=== PATIENT | male | born 1975 ===

== ENCOUNTER 2017-05-24 16:14 | Emergency (ER) | payer BC, OTHER ==
[2017-05-24 17:08] LABS: BASO % 0.4 % (0.0-2.0); EOS # 0.3 K/uL (0.0-0.7); EOS % 2.7 % (0.0-4.0); LYMPH # 2.8 K/uL (1.0-4.3); LYMPH % 25.4 % (20.0-40.0); MEAN CELL VOLUME 84.7 fl (80.0-94.0); MEAN CORPUSCULAR HEMOGLOBIN 27.5 pg (27.0-31.0); MEAN CORPUSCULAR HGB CONC 32.5 g/dL (33.0-37.0); MEAN PLATELET VOLUME 7.8 fl (7.2-11.7); MONO # 0.7 K/uL (0.0-0.8); MONO % 6.7 % (0.0-10.0); NEUT % 64.8 % (50.0-75.0); RBC 4.74 Mil/uL (4.40-5.90); RED CELL DISTRIBUTION WIDTH 14.7 % (11.5-14.5); WHITE BLOOD COUNT 10.9 K/uL (4.8-10.8)
[2017-05-24 17:14] LABS: URINE BACTERIA RARE (<OCC); URINE BILIRUBIN NEGATIVE (NEGATIVE); URINE BLOOD MODERATE (NEGATIVE); URINE CLARITY CLEAR (Clear); URINE COLOR STRAW (YELLOW); URINE GLUCOSE (UA) NEG (Normal); URINE LEUKOCYTE ESTERASE NEG Leu/uL (Negative); URINE NITRATE NEGATIVE (NEGATIVE); URINE PROTEIN NEGATIVE (NEGATIVE); URINE UROBILINOGEN 0.2-1.0 mg/dL (0.2-1.0)
--- NOTE | 2017-05-24 17:16 | ED PDOC ---
HPI: Chest Pain Time Seen by Provider: 05/24/17 16:27 Chief Complaint (Nursing): Chest Pain History Per: Patient, Acute Coordinator History/Exam Limitations: no limitations Onset/Duration Of Symptoms: Days (4), Gradual, Worse Since (today) Current Symptoms Are (Timing): Intermittent Episodes Severity: Mild Quality: Sharp Associated Symptoms: denies: Nausea, Dyspnea, Diaphoresis, Syncope Modifying Factors: None Exacerbating Factors: None Alleviating Factors: None Additional History Per: Patient Additional Complaint(s): Patient complaining of midsternal chest pain radiating to left side x 4 days. non exertional Past Medical History Reviewed: Historical Data, Nursing Documentation, Vital Signs Vital Signs: Last Vital Signs Temp 97.8 F 05/24/17 19:13 Pulse 54 L 05/24/17 19:42 Resp 16 05/24/17 19:42 BP 137/79 05/24/17 19:42 Pulse Ox 100 05/24/17 21:27 - Medical History PMH: No Chronic Diseases Denies: Chronic Kidney Disease - Family History Family History: States: Unknown Family Hx - Living Arrangements Living Arrangements: With Family - Home Medications Home Medications: Ambulatory Orders Medication Instructions Recorded Cyclobenzaprine [Flexeril] 10 mg PO TID PRN #0 tab 04/20/14 Ibuprofen [Motrin Tab] 800 mg PO Q8 #0 tab 04/20/14 Cyclobenzaprine [Cyclobenzaprine 10 mg PO TID PRN #15 tab 05/24/17 HCl] - Allergies Allergies/Adverse Reactions: Allergies Allergy/AdvReac Type Severity Reaction Status Date / Time No Known Allergies Allergy Verified 04/16/14 07:35 DAYDAY Risk Score for UA/NSTEMI - DAYDAY Risk Score Age > 64: NO 3 or more CAD Risk Factors: NO Known CAD (Stenosis greater than 50%): NO Aspirin use in past 7 days: NO Severe Angina: NO EKG ST changes greater than 0.5mm: NO Positive Cardiac Marker: NO DAYDAY Score: 0 Risk %: 5% Review of Systems ROS Statement: Except As Marked, All Systems Reviewed And Found Negative Constitutional: Negative for: Fever, Chills Cardiovascular: Positive for: Chest Pain. Negative for: Palpitations, Orthopnea Respiratory: Negative for: Cough, Shortness of Breath Gastrointestinal: Negative for: Nausea, Vomiting, Abdominal Pain Musculoskeletal: Negative for: Neck Pain Neurological: Negative for: Weakness, Numbness, Headache Physical Exam - Reviewed Nursing Documentation Reviewed: Yes Vital Signs Reviewed: Yes - Physical Exam Appears: Positive for: Uncomfortable Head Exam: Positive for: ATRAUMATIC, NORMAL INSPECTION, NORMOCEPHALIC Eye Exam: Positive for: Normal appearance, EOMI, PERRL Neck: Positive for: Normal, Painless ROM, Supple. Negative for: Decreased ROM Cardiovascular/Chest: Positive for: Regular Rate, Rhythm, Chest Non Tender. Negative for: Edema, Gallop, Murmur, Bradycardia, Tachycardia Respiratory: Positive for: Normal Breath Sounds. Negative for: Decreased Breath Sounds, Accessory Muscle Use, Crackles, Rales, Rhonchi, Stridor, Wheezing , Respiratory Distress, Plerual Rub Pulses-Radial (L): 2+ Pulses-Radial (R): 2+ Gastrointestinal/Abdominal: Positive for: Normal Exam, Bowel Sounds, Soft. Negative for: Tenderness Back: Positive for: Normal Inspection. Negative for: L CVA Tenderness, R CVA Tenderness Extremity: Positive for: Normal ROM. Negative for: Tenderness, Pedal Edema Neurologic/Psych: Positive for: Alert, camp dishwasher II-XII, Oriented. Negative for: Motor/Sensory Deficits - Laboratory Results Result Diagrams: 05/24/17 16:50 05/24/17 16:50 - ECG ECG: Positive for: Interpreted By Me ECG Rhythm: Positive for: Normal QRS, Normal ST Segment, Sinus Rhythm. Negative for: ST/T Changes Interpretation Of Abn EKG: rate of 70, no evidence of ischemia O2 Sat by Pulse Oximetry: 100 Pulse Ox Interpretation: Normal - Radiology X-Ray: Interpreted by Me X-Ray Interpretation: No Acute Disease - Progress ED Course And Treament: CT Scan ABD PELVIS W/O PO OR IV CONT Exam Date: 05/24/17 This imaging exam was performed at [facility] EXAM: CT Abdomen and Pelvis Without Intravenous Contrast EXAM DATE/TIME: 05/24/2017 6:03 PM CLINICAL HISTORY: 41 years old, male; Pain; Abdominal pain; Additional info: Left flank pain R/O renal stone TECHNIQUE: Axial computed tomography images of the abdomen and pelvis without intravenous contrast. All CT scans at this facility use one or more dose reduction techniques, viz.: automated exposure control; ma/kV adjustment per patient size (including targeted exams where dose is matched to indication; i.e. head); or iterative reconstruction technique. Coronal and sagittal reformatted images were created and reviewed. COMPARISON: No relevant prior studies available. FINDINGS: LIMITATIONS: Mild streak/motion artifact. LOWER THORAX: Small hiatal hernia. ABDOMEN: LIVER: Scattered, tiny low density liver lesions, most likely representing cysts, although several of these lesions are too small to characterize definitively. The largest lesion measures 9 mm. GALLBLADDER AND BILE DUCTS: No CT evidence of acute cholecystitis. No evidence of significant biliary ductal dilatation. PANCREAS: No CT evidence of acute pancreatitis. SPLEEN: No acute abnormality of the spleen identified. ADRENALS: No acute abnormality of the adrenal glands identified. KIDNEYS AND URETERS: Bilateral perinephric stranding, a nonspecific finding. No renal stones, hydronephrosis, or hydroureter seen. STOMACH AND BOWEL: No acute abnormality of the stomach, small bowel or colon identified, allowing for motion artifact. No evidence of bowel obstruction. No evidence of diverticulitis. APPENDIX: Appendix is seen, and is within normal limits in appearance. PELVIS: BLADDER: No acute abnormality of the bladder identified. REPRODUCTIVE: No acute abnormality of the reproductive organs is seen. ABDOMEN and PELVIS: INTRAPERITONEAL SPACE: No evidence of free intraperitoneal air or fluid. BONES/JOINTS: Findings suspicious for bilateral sacroiliitis. There is mild sclerosis abutting the sacroiliac joints bilaterally, associated with suspected mild erosive changes. This appears symmetric. An underlying spondyloarthropathy such as ankylosing spondylitis, could have this appearance. Recommend clinical correlation. Osteoarthritic changes involving the right hip. No acute bony abnormality identified. SOFT TISSUES: Fat-containing inguinal hernia on the left. VASCULATURE: No evidence of abdominal aortic aneurysm. No evidence of periaortic hemorrhage. LYMPH NODES: No evidence of diffuse lymphadenopathy. IMPRESSION: - No evidence of significant acute process on this unenhanced exam. There is no evidence of nephrolithiasis or obstructive uropathy. - Findings suspicious for bilateral sacroiliitis. Please see above for a full description. - See above for remaining findings. Dictated By: Dian Martinez MD Dictated Date/Time: 05/24/171928 Signed By: Dian Martinez MD Date Signed: 1928 Transcribed By: LEONA Transcribe Date/Time : 05/24/171928 [facility] Re-evaluation Time: 19:35 Condition: Improved Medical Decision Making Medical Decision Makinpm sx have improved two undetectable trop r/o Mi in this pt that is low risk. advise close f/u with pmd and survey methodologist. advise close clinic f/u. advise no exertion until seen by cards or fp clinic all of pt's questions were answered and pt agree's with plan pt leaves ambulatory and in good spirits. Disposition - Clinical Impression Clinical Impression: Chest pain - Patient ED Disposition Is Patient to be Admitted: No Counseled Patient/Family Regarding: Studies Performed, Diagnosis, Need For Followup - Disposition Referrals: [facility] [Outside] Alejandro Lozano MD [Staff Provider] - Disposition: Routine/Home Disposition Time: 21:00 Condition: GOOD Prescriptions: Cyclobenzaprine [Cyclobenzaprine HCl] 10 mg PO TID PRN #15 tab PRN Reason: Pain, Mild (1-3) Instructions: Chest Pain, Sacroiliac Joint Pain (DC) Forms: [facility] (Serbian) Print Language: MONEGASQUE
[2017-05-24 17:19] LABS: ALB/GLOB RATIO 1.2 (1.0-2.1); ALBUMIN 4.2 g/dL (3.5-5.0); ALT/SGPT 42 U/L (21-72); AST/SGOT 27 U/L (17-59); BLOOD UREA NITROGEN 11 mg/dl (9-20); CALCIUM 9.3 mg/dL (8.4-10.2); GFR AFRICAN-AMERICAN > 60; GFR NON-AFRICAN AMERICAN > 60; LIPASE 103 U/L (23-300)
[2017-05-24 17:29] LABS: B-TYPE NATRIURETIC PEPTIDE 37.4 pg/ml (0-450)
[2017-05-24 17:51] LABS: INR 1.1 (0.9-1.2); PARTIAL THROMBOPLASTIN TIME 25.3 Seconds (25.6-37.1); PROTHROMBIN TIME 12.5 Seconds (9.8-13.1)
[2017-05-24] MEDS: Sodium Chloride 0.9% 1,000 ML IV ONE (18:26)
[2017-05-24 19:13] VITALS: TEMP 97.8
--- NOTE | 2017-05-24 19:30 | CT ---
EXAM: CT Abdomen and Pelvis Without Intravenous Contrast EXAM DATE/TIME: 05/24/2017 6:03 PM CLINICAL HISTORY: 41 years old, male; Pain; Abdominal pain; Additional info: Left flank pain R/O renal stone TECHNIQUE: Axial computed tomography images of the abdomen and pelvis without intravenous contrast. All CT scans at this facility use one or more dose reduction techniques, viz.: automated exposure control; ma/kV adjustment per patient size (including targeted exams where dose is matched to indication; i.e. head); or iterative reconstruction technique. Coronal and sagittal reformatted images were created and reviewed. COMPARISON: No relevant prior studies available. FINDINGS: LIMITATIONS: Mild streak/motion artifact. LOWER THORAX: Small hiatal hernia. ABDOMEN: LIVER: Scattered, tiny low density liver lesions, most likely representing cysts, although several of these lesions are too small to characterize definitively. The largest lesion measures 9 mm. GALLBLADDER AND BILE DUCTS: No CT evidence of acute cholecystitis. No evidence of significant biliary ductal dilatation. PANCREAS: No CT evidence of acute pancreatitis. SPLEEN: No acute abnormality of the spleen identified. ADRENALS: No acute abnormality of the adrenal glands identified. KIDNEYS AND URETERS: Bilateral perinephric stranding, a nonspecific finding. No renal stones, hydronephrosis, or hydroureter seen. STOMACH AND BOWEL: No acute abnormality of the stomach, small bowel or colon identified, allowing for motion artifact. No evidence of bowel obstruction. No evidence of diverticulitis. APPENDIX: Appendix is seen, and is within normal limits in appearance. PELVIS: BLADDER: No acute abnormality of the bladder identified. REPRODUCTIVE: No acute abnormality of the reproductive organs is seen. ABDOMEN and PELVIS: INTRAPERITONEAL SPACE: No evidence of free intraperitoneal air or fluid. BONES/JOINTS: Findings suspicious for bilateral sacroiliitis. There is mild sclerosis abutting the sacroiliac joints bilaterally, associated with suspected mild erosive changes. This appears symmetric. An underlying spondyloarthropathy such as ankylosing spondylitis, could have this appearance. Recommend clinical correlation. Osteoarthritic changes involving the right hip. No acute bony abnormality identified. SOFT TISSUES: Fat-containing inguinal hernia on the left. VASCULATURE: No evidence of abdominal aortic aneurysm. No evidence of periaortic hemorrhage. LYMPH NODES: No evidence of diffuse lymphadenopathy. IMPRESSION: - No evidence of significant acute process on this unenhanced exam. There is no evidence of nephrolithiasis or obstructive uropathy. - Findings suspicious for bilateral sacroiliitis. Please see above for a full description. - See above for remaining findings.
[2017-05-24 19:35] VITALS: O2SAT 100
[2017-05-24 19:43] VITALS: BP 137/79; PULSE 54; RESP 16
--- NOTE | 2017-05-25 08:58 | RAD ---
PROCEDURE: CHEST RADIOGRAPH, 1 VIEW HISTORY: cp COMPARISON: None available. FINDINGS: LUNGS: Clear. PLEURA: No pneumothorax or pleural fluid seen. CARDIOVASCULAR: Normal. OSSEOUS STRUCTURES: No significant abnormalities. VISUALIZED UPPER ABDOMEN: Normal. OTHER FINDINGS: None. IMPRESSION: No active disease.
--- NOTE | 2017-05-28 18:29 | CARD ---
APPROVED REPORT EKG Measurement Heart [id number] <Conclusion> Normal sinus rhythm Normal ECG
== END 2017-05-24 22:08 | disposition home or self-care (01) ==
LOC: H.ER 16:14
DX: R07.89 Other chest pain (principal)
CPT/HCPCS: 71045; 74176; 80053; 81003; 83690; 83735; 83880; 84484; 85025; 85378; 85610; 85730; 93005; 96361; 96374; 96375; 99284; J1885; J7040

== ENCOUNTER 2018-02-19 12:02 | Emergency (ER) | payer BC, OTHER ==
[2018-02-19 12:06] VITALS: BP 163/89; PULSE 99; RESP 18; TEMP 98.9; O2SAT 99
[2018-02-19] MEDS ORDERED: Tdap Vaccine 0.5 ml Vial (10-64 yrs) IM ONE (12:54)
--- NOTE | 2018-02-19 13:05 | ED PDOC ---
HPI: Eye Injury/Pain Time Seen by Provider: 02/19/18 12:26 Chief Complaint (Nursing): Eye Problem Chief Complaint (Provider): Eye Problem History Per: Patient History/Exam Limitations: no limitations Onset/Duration Of Symptoms: Days (SINCE Wednesday02/13/18) Current Symptoms Are (Timing): Still Present Severity: Severe Pain Scale Rating Of: 10 Associated Symptoms: Pain, Decreased Vision, Other (redness, tearing, left sided (pressure-like) headache, unable to open eye due to pain). denies: Swelling, FB Sensation, Itching, Discharge From Eye Additional History Per: Family (daughter at bedside) Additional Complaint(s): 42 year old male with a past medical history of hypertension presents to the ED for an evaluation of severe left eye pain that has been worsening for the past 6 days. Patient reports having associated symptoms of marked photophobia (since onset), tearing associated with redness, 10/10 level pain associated with a left sided (pressure-like) headache, and loss of vision from the affected eye. Patent reports taking Motrin for pain (last dose was last night). Patient also reports having hypertension, but is non-compliant with his medications, and does not recall the names of them. Otherwise: (-) crusting, (-) itching, (-) mucous discharge, (-) wearing contacts or glasses, (-) fevers, (-) chills, (-) dizziness, (-) ear pain, (-) throat pain, (-) facial numbness, (-) trauma to the eye, (-) foreign body sensation. Tetanus is not up to date. PMD: Cannot recall Ophtho: does not have Past Medical History Reviewed: Historical Data, Nursing Documentation, Vital Signs Vital Signs: Last Vital Signs Temp 98.9 F 02/19/18 12:04 Pulse 99 H 02/19/18 12:04 Resp 18 02/19/18 12:04 BP 163/89 H 02/19/18 12:04 Pulse Ox 99 02/19/18 12:04 - Medical History PMH: HTN - Surgical History Surgical History: No Surg Hx - Family History Family History: States: No Known Family Hx - Social History Current smoker - smoking cessation education provided: No - Home Medications Home Medications: Ambulatory Orders Medication Instructions Recorded RX: Cyclobenzaprine [Flexeril] 10 mg PO TID PRN #0 tab 04/20/14 RX: Ibuprofen [Motrin Tab] 800 mg PO Q8 #0 tab 04/20/14 Cyclobenzaprine [Cyclobenzaprine 10 mg PO TID PRN #15 tab 05/24/17 HCl] - Allergies Allergies/Adverse Reactions: Allergies Allergy/AdvReac Type Severity Reaction Status Date / Time No Known Allergies Allergy Verified 04/16/14 07:35 Review of Systems ROS Statement: Except As Marked, All Systems Reviewed And Found Negative Constitutional: Negative for: Fever, Chills Eyes: Positive for: Pain (severe pain, marked photophobia since onset, tearing with eye redness). Negative for: Other (foreign body sensation, crusting, mucous discharge) ENT: Negative for: Ear Pain, Throat Pain Neurological: Positive for: Headache (left sided (pressure-like)). Negative for: Numbness ((-) facial numbness), Dizziness Physical Exam - Reviewed Nursing Documentation Reviewed: Yes Vital Signs Reviewed: Yes - Physical Exam Comments: GENERAL APPEARANCE: Patient is awake, alert, oriented x 3, uncomfortable appearing. HEENT: (-) facial swelling and erythema, (-) facial blisters. RESPIRATORY: lungs clear to auscultation (-) rales (-) rhonchi (-) wheezing CARDIAC: (-) irregularity ABDOMEN: Soft (-) tenderness (-) guarding (-) distention NECK: Supple, FROM Eye exam extremely limited due to patient's inability to cooperate secondary to pain and difficulty opening eye. LEFT EYE: diffuse conjunctival erythema. (+) tearing, (+) tenderness to orbital globe, (-) crusting, (-) mucous discharge, (-) periorbital tenderness, (-) periorbital edema, (-) periorbital erythema, (-) periorbital warmth. PUPILS: Left pupil is constricted. EOM's: Intact, but with pain on all EOM. NEURO: Mental status as above; (-) facial asymmetry (-) aphasia. Gait: steady. Speech: clear. Cerebellar tests intact. - ECG O2 Sat by Pulse Oximetry: 99 (RA) Pulse Ox Interpretation: Normal Medical Decision Making Medical Decision Makin:25 Clinical Impression: 42 year old male with acute eye pain, visual loss -probable uveitis. Initial plan: IV access BMP CBC with differential ESR tetanus (adacel 10-64 years) 0.5 ml IM once toradol 30 mg IVP once reevaluation Consult placed to (ophthalmology on-call) immediately following patient examination. 12:55 Spoke with , who wants the patient to go to his office immediately upon discharge. No further action to be taken in the ED, as Dr. Shaikh wants to see the patient SHARMIN. Patient discharged prior to obtaining lab work and visual acuity in light of conversation with . Patient and daughter at bedside instructed to go to Dr Shaikh's office immediately upon discharge as Dr Shaikh was expecting them. Stressed to patient the need for immediate ophtho evaluation given the possibility of visual loss being permanent as symptoms have been present x6 days. Scribe Attestation: Documented by Jocelyn Walker, acting as a scribe for Jocelyn Schmidt. Provider Scribe Attestation: All medical record entries made by the Scribe were at my direction and personally dictated by me. I have reviewed the chart and agree that the record accurately reflects my personal performance of the history, physical exam, medical decision making, and the department course for this patient. I have also personally directed, reviewed, and agree with the discharge instructions and disposition. Disposition - Clinical Impression Clinical Impression: Left eye pain, Uveitis of left eye, Elevated blood pressure reading, Visual loss - Patient ED Disposition Is Patient to be Admitted: No Counseled Patient/Family Regarding: Diagnosis, Need For Followup (immediate) - Disposition Referrals: Joshua Shaikh MD [Staff Provider] - Disposition: Other Institution (Dr Shaikh's office) Disposition Time: 13:00 Condition: STABLE Additional Instructions: GO STRAIGHT TO DR SHAIKH'S OFFICE IMMEDIATELY UPON DISCHARGE. YOUR ILLNESS CAN POTENTIALLY CAUSE PERMANENT VISUAL LOSS AND REQUIRES EMERGENT OPHTHO EVALUATION. REFERRAL PROVIDED IN PAPERWORK. DR SHAIKH AWARE OF PATIENT. Instructions: Uveitis, High Blood Pressure (DC), Medicines for High Blood Pressure, Hypertension (ED) Forms: [facility] (Tajik) Print Language: SAMI - POA Present On Arrival: None
== END 2018-02-19 13:21 | disposition home or self-care (01) ==
LOC: H.ER 12:02
DX: H57.12 Ocular pain, left eye (principal); H20.9 Unspecified iridocyclitis; I10 Essential (primary) hypertension; H54.7 Unspecified visual loss